=== PATIENT | male | born 1990 | race Caucasian/White ===

== ENCOUNTER 2019-01-27 23:23 | Emergency (ER) | payer BC ==
[~2019-01-27] VITALS: Ht 190.5 cm; Wt 95.5 kg
[2019-01-27 23:37] VITALS: BP 153/90; TEMP 97.8
[2019-01-28] MEDS ORDERED: WELLBUTRIN 75MG75 MG PO (00:31)
[2019-01-28 00:54] VITALS: PULSE 63
== END 2019-01-28 00:54 | disposition home or self-care (01) ==
LOC: COL.ER 23:23
DX: K08.89 Other specified disorders of teeth and supporting structures (principal)